=== PATIENT | male | born 1990 | race Hispanic/Latino ===

== ENCOUNTER 2017-04-22 03:33 | Emergency (ER) | payer SELFPAY ==
[2017-04-22] MEDS: Sodium Chloride 0.9% 1,000 ML PRIMARY IV ONE (03:33)
[2017-04-22 03:50] VITALS: RESP 18; TEMP 96.8
[2017-04-22] MEDS ORDERED: NORMAL SALINE 10 ML SYRINGE FLUSH IVP PRN (04:09)
[2017-04-22 04:14] LABS: BASOPHILS # (AUTO) 0.12 10*3/UL; BASOPHILS % (AUTO) 1.4 % (0-1); BLOOD UREA NITROGEN 12 mg/dL (7-22); BUN/CREATININE RATIO 13.33 (6-20); EOSINOPHILS # (AUTO) 0.12 10*3/UL; EOSINOPHILS % (AUTO) 1.4 % (0-8); EST GLOMERULAR FILTRATION > 60 (>60 ml/min/1.73m(2)); HEMOGLOBIN 16.7 g/dL (14.0-18.0); LYMPHOCYTES # (AUTO) 1.76 10*3/uL; MEAN CORPUSCULAR HEMOGLOBIN 33.3 PG (27-31); MEAN CORPUSCULAR HGB CONC 36.3 g/dL (33-37); MEAN CORPUSCULAR VOLUME 91.8 FL (80-90); MEAN PLATELET VOLUME 11.5 FL (7.4-12.2); MONOCYTES # (AUTO) 0.35 10*3/UL (0.3-0.8); MONOCYTES % (AUTO) 4.2 % (5-15); NEUTROPHILS # (AUTO) 5.99 10*3/UL; NEUTROPHILS % (AUTO) 71.6 % (50-80); PLATELET MORPHOLOGY COMMENT NORMAL MORPHOLOGY (NORM); RBC MORPHOLOGY COMMENT NORMAL MORPHOLOGY (NORM); RED BLOOD COUNT 5.01 10^6/uL (4.70-6.10); SERUM ALBUMIN 4.8 g/dL (3.5-4.8); WBC MORPHOLOGY COMMENT NORMAL MORPHOLOGY (NORM)
[2017-04-22 04:32] LABS: ABG BASE EXCESS -8 MMOL/L (-2-2); ABG OXYGEN SATURATION 89 % (90-100); ABG PCO2 36 MMHG (34-38); ABG PH 7.31 (7.35-7.45); ABG PO2 61 MMHG (65-75); COLLECTION SITE L Brachial
[2017-04-22 04:33] LABS: ALLEN TEST positive
--- NOTE | 2017-04-22 04:58 | DI ---
HISTORY: Confusion. Patient denies any trauma to the head. TECHNIQUE: Contiguous axial images of the brain were obtained and submitted for interpretation. FINDINGS: No acute intracranial hemorrhage. No mass effect or midline shift. The ventricles, sulci , and cisterns are within normal limits for age. The mendes-white matter differentiation is preserved with no evidence of acute infarct. No aggressive osseous lesion or depressed skull fracture. Paranasal sinuses and mastoid air cells ar e clear. Vascular structures are intact. Orbits and facial soft tissues are unremarkable. IMPRESSION: 1. No acute intracranial findings.
[2017-04-22 05:04] LABS: AMPHETAMINE SCREEN NEGATIVE (NEG); CANNABINOID SCREEN,URINE NEGATIVE (NEG); COCAINE SCREEN NEGATIVE (NEG); METHADONE URINE SCREEN NEGATIVE (NEG); METHAMPHETAMINES SCREEN,URINE NEGATIVE (NEG); OPIATE SCREEN,URINE NEGATIVE (NEG); URINE SAMPLE TYPE VOIDED SPECIMEN; URINE SPECIFIC GRAVITY - MAN 1.005
--- NOTE | 2017-04-22 05:34 | PDOC ---
General Adult HPI - General Chief Complaint: Diabetic Complaint Stated Complaint: BLOOD SUGAR OF 329 Date Seen by Provider: 04/22/17 Time Seen by Provider: 03:50 Source: POSITIVE: Patient, Police, EMS Exam Limitations: POSITIVE: No limitations Nurse's Notes Reviewed & Considered: Yes - History of Present Illness Initial Comment: The patient is a 26-year-old male. He is brought to the emergency room by EMS. He is also accompanied by police officers. According to police pilot, the patient was [place] [address] in the dark. Passing motors were concerned and so they contacted the police officers. When police officers arrived on the scene the patient appeared somewhat "confused". He smells very strongly of alcohol and police officers did a breathalyzer test which read around 270. Police officers then called the paramedics, who brought the patient to the emergency room. Patient states he has a history of type I diabetes mellitus but stopped taking his Humulin a couple of months ago. He has a history of alcohol abuse. Accu-Chek at the scene showed a blood glucose of 329. Patient denies any fevers or chills. Denies any head trauma. He does have a superficial abrasion to the posterior aspect of his right shoulder, and he states he's not sure how he got this. Have you received a tetanus shot in the past 10 years?: Yes Body Location Affected: REPORTS: Other (As above) Timing: REPORTS: Unknown Duration: Unknown (Patient states he's been drinking alcohol heavily today) Severity: Moderate Quality: REPORTS: Other (Patient denies any pain anywhere) Context: REPORTS: None Modifying Factors: improves with: Nothing Similar Symptoms Previously: No Recent Care Received: REPORTS: Recently Seen, Treated by MD Any Prior Injuries Related to Current Complaint?: No - Patient Home Medications Home Medications: Home Medications NK [No Home Medications Reported] 04/22/17 - Patient Allergies Allergies/Adverse Reactions: Allergies Allergy/AdvReac Type Severity Reaction Status Date / Time No Known Allergies Allergy Unverified 04/22/17 03:45 Past Medical History - heen HEENT History: Denies History Cardiovascular History: Denies History Respiratory History: Denies History Gastrointestinal History: Denies History Genitourinary History: Denies History Endocrine History: Other (please comment) Additional Endocrine History: DIABETES (BUT GOES FROM TYPE 1 TO TYPE 2 AND BACK TO TYPE 1) Musculoskeletal History: Denies History Neurological History: Denies History Blood Disorders: Denies History Psychiatric History: Denies History Male Reproductive History: Denies History Cancer History: Denies History In Past Year Been Physically Harmed or Verbally Threatened: No History of MDRO: No Tobacco Use: Never Smoker Alcohol Use: Occasionally Substance Use Type: None Previous Surgical History: No Significant Family History: No pertinent family hx Past Medical History Reviewed: Reviewed - No Changes ROS - Limitations ROS Limitations: Intoxication (Patient will answer most questions appropriately , but is intoxicated) Constitution: REPORTS: Denies Symptoms Cardiovascular: REPORTS: Denies Cardiac Symptoms Respiratory: REPORTS: Denies Resp Symptoms Neurological: REPORTS: Confusion (Reportedly confused at the scene, according to police officers, but more alert and oriented now) Gastrointestinal: REPORTS: Denies GI Symptoms Endocrine: REPORTS: Elevated Glucose Musculoskeletal: REPORTS: Denies MS Symptoms Genitourinary: REPORTS: Denies Symptoms Eyes: REPORTS: Denies Symptoms ENT: REPORTS: Denies Symptoms Skin: REPORTS: Other (Superficial abrasion posterior aspect of right shoulder) Lympathic: REPORTS: Denies Lympathic Symptoms Immunologic: POSITIVE: Denies Symptoms Psychiatric: POSITIVE: Denies Psych Symptoms General Adult Exam - General Appearance General Appearance: POSITIVE: Alert, Cooperative, No Acute Distress. NEGATIVE: No Evidence of Trauma (Superficial abrasion posterior aspect right shoulder) - HEENT HEENT: POSITIVE: Head Inspection Nml, Eyes Inspection Nml, Ears Inspection Nml, Nose Inspection Nml, Oral/Dental Inspect. Nml, Pharynx Inspect. Nml, PERRL, EOMI - Pupils Pupil Size: 4 mm: Bilateral (PERRLA) - Neck Neck: POSITIVE: Normal Inspection, Thyroid Normal - Respiratory Respiratory: POSITIVE: No Respiratory Distress, Breath Sounds Normal, Chest Non- Tender - Cardiovascular Cardiovascular: POSITIVE: Regular Rate & Rhythm, No Murmur, No Gallop, PMI Normal Peripheral Pulses: Radial (R): 2+, Radial (L): 2+ - Abdomen Abdomen: Soft: (All Quadrants), Normal Bowel Sounds: (All Quadrants), Denies Tenderness: (All Quadrants), No Splenomegaly: (All Quadrants), No Hepatomegaly: (All Quadrants), No Guarding: (All Quadrants), No Rebound: (All Quadrants), No Palpable Pulse: (All Quadrants), No Palpabale Mass: (All Quadrants), No Distention: (All Quadrants), No Rigidity: (All Quadrants) - Back Back: POSITIVE: Normal Inspection - Skin Skin: POSITIVE: Normal Color, Warm, Dry, No Rash - Extremities Extremity: Non-Tender: (All Extremities), Normal ROM: (All Extremities), Normal Inspection: (All Extremities) - Neurological / Psychological Neurological: POSITIVE: Affect Apporpriate, Oriented X3, quality specialist Normal As Tested, Motor Normal, Sensation Normal General Adult Progress - Results Reviewed by me Xrays/CTs/US Reviewed by me: Yes Discussed with Radiologist: Yes Radiology Findings: CT scan head without contrast normal Lab Results Reviewed: Yes (blood alcohol 270; blood glucose 333; blood gas normal) Lab Results:: Laboratory Results 04/22/17 04/22/17 Range/Units 04:09 05:04 WBC 8.37 (4.8-10.8) 10^3/uL RBC 5.01 (4.70-6.10) 10^6/uL Hgb 16.7 (14.0-18.0) g/dL Hct 46.0 (42.0-52.0) % MCV 91.8 H (80-90) FL MCH 33.3 H (27-31) PG MCHC 36.3 (33-37) g/dL RDW Std Deviation 41.6 (39-50) fL RDW Coeff of Lucio 12.7 (11.5-14.5) % Plt Count 215 (140-350) 10*3/uL MPV 11.5 (7.4-12.2) FL Immature Gran % (Auto) 0.4 (0-5) % Neut % (Auto) 71.6 (50-80) % Lymph % (Auto) 21.0 (10-50) % [place] % (Auto) 4.2 L (5-15) % Eos % (Auto) 1.4 (0-8) % Baso % (Auto) 1.4 H (0-1) % Immature Gran # (Auto) 0.03 10*3/UL Neut # (Auto) 5.99 10*3/UL Lymph # (Auto) 1.76 10*3/uL [place] # (Auto) 0.35 (0.3-0.8) 10*3/UL Eos # (Auto) 0.12 10*3/UL Baso # (Auto) 0.12 10*3/UL WBC Morphology Comment Normal morphology (NORM) Plt Morphology Comment Normal morphology (NORM) RBC Morph Comment Normal morphology (NORM) ABG pH 7.31 L (7.35-7.45) ABG pCO2 36 (34-38) MMHG ABG pO2 61 L (65-75) MMHG ABG HCO3 18 L (22-26) ABG Total CO2 19 L (23-27) MMOL/L ABG O2 Saturation 89 L (90-100) % ABG Base Excess -8 L (-2-2) MMOL/L Hank Test positive FiO2 21 Sodium 139 (135-145) meq/L Potassium 4.2 (3.8-5.2) meq/L Chloride 101 (98-112) meq/L Carbon Dioxide 21 L (23-33) meq/L Anion Gap 17 (5-20) BUN 12 (7-22) mg/dL Creatinine 0.9 (0.70-1.50) mg/dL Estimated GFR > 60 (>60 ml/min/1.73m(2)) BUN/Creatinine Ratio 13.33 (6-20) Glucose 333 H (78-110) mg/dL Calculated Osmolality 300.0 H (267-292) mOsm/kg Lactic Acid 3.9 H (0.70-2.10) MMOL/L Calcium 10.0 (8.7-10.7) mg/dL Total Bilirubin 0.6 (0.3-1.2) mg/dL AST 30 (21-57) IU/L ALT 56 (21-72) IU/L Alkaline Phosphatase 97 (38-126) IU/L Total Protein 8.4 H (6.1-8.0) g/dL Albumin 4.8 (3.5-4.8) g/dL Globulin 3.6 (2.50-4.10) g/dL Albumin/Globulin Ratio 1.30 (1.3-2.0) mg/g Ur Collection Type Voided specimen U Specif Grav (Refrac) 1.005 Urine Opiates Screen Negative (NEG) Ur Buprenorphine Negative (NEG) Ur Oxycodone Screen Negative (NEG) Urine Methadone Screen Negative (NEG) Ur Propoxyphene Screen Negative (NEG) Barbiturate Screen Negative (NEG) U Tricyclic Antidepress Negative (NEG) Phencyclidine Screen Negative (NEG) Amphetamines Screen Negative (NEG) U Methamphetamines Scrn Negative (NEG) Benzodiazepines Screen Negative (NEG) Cocaine Screen Negative (NEG) U Marijuana (THC) Screen Negative (NEG) Serum Alcohol 270 H (0-10) mg/dL - Patient's Progress Pain Medication Addressed: POSITIVE: Not Applicable School/Work Release Addressed: POSITIVE: Not Applicable Re-Examine Time: 05:20 Re-Examine Comment: I emphasized to the patient that he needs to have his diabetes treated, although he is not in ketoacidosis. He states he will follow- up with his primary care provider and get back on his insulin. Patient observed in the emergency room until 5:20 AM. Patient rested comfortably and was intermittently watching television. He was advised to stop drinking alcohol. Return as necessary. Follow up with his primary care provider. Status: POSITIVE: Improved, Re-Examined Antibiotics Given: No - Consult Counseled: POSITIVE: Patient, RE: Lab Results, RE: Radiology Results, RE: DX, RE : Need for F/U Patient Care Time - Estimated PCT Patient Care Time (In Minutes): 53 Vital Signs - Recent Vital Signs Vital Signs: Vital Signs (Last 8 hours) Temp Pulse Resp BP Pulse Ox 04/22/17 03:43 96.8 F 101 H 18 139/102 95 04/22/17 03:33 96.8 F 101 H 18 139/102 95 - VS Reviewed Vital Signs Reviewed: Yes Discharge Clinical Impression: Alcoholic intoxication Discharge Disposition: Discharged to Home Condition: Good Patient Instructions Given at Discharge: Type 1 Diabetes in Adults (ED) Additional Instructions: Stop drinking alcohol. Restart your diabetes medications and follow-up with your primary care provider for further monitoring of your diabetes. Return here anytime if condition worsens. Follow Up With: NONE,NONE [Primary Care Provider] - (Instructions as above. Follow-up with your primary care provider)
== END 2017-04-22 05:27 | disposition home or self-care (01) ==
LOC: ER 03:33
DX: F10.129 Alcohol abuse with intoxication, unspecified (principal); S40.211A Abrasion of right shoulder, initial encounter; E10.9 Type 1 diabetes mellitus without complications; Z79.4 Long term (current) use of insulin
CPT/HCPCS: 36600; 70450; 80053; 80305; 80320; 82803; 83605; 85025; 99283